=== PATIENT | female | born 1930 | race Caucasian/White ===

== ENCOUNTER 2022-08-18 08:12 | Inpatient (IN) | payer MEDICARE, BC ==
[~2022-08-18] VITALS: Ht 161.3 cm; Wt 85.7 kg
--- NOTE | 2022-08-18 08:15 | NUR ---
[id number] FROM HOME R ANKLE PAIN S/P GLF, NOTED COMPOUND FRACTURE COMMERCIAL CREDIT ANALYST.[id number] FROM HOME R ANKLE PAIN S/P GLF, NOTED COMPOUND FRACTURE COMMERCIAL CREDIT ANALYST.
--- NOTE | 2022-08-18 08:25 | NUR ---
medicated as ordered
[2022-08-18] MEDS ORDERED: ONDANSETRON HCL/PF 4 MG/2 ML VIAL ONE (08:27)
[2022-08-18] MEDS ORDERED: MORPHINE SULFATE INJ 4 MG/ML DISP.SYRIN ONE (08:28)
[2022-08-18] MEDS ORDERED: ONDANSETRON HCL/PF 4 MG/2 ML VIAL IVP ONE (08:30)
[2022-08-18] MEDS ORDERED: IV NS 0.9% 500 ML BAG IV ONE (08:30)
[2022-08-18] MEDS ORDERED: MORPHINE SULFATE INJ 2 MG/ML DISP.SYRIN IV ONE (08:30)
--- NOTE | 2022-08-18 08:38 | NUR ---
mixing technician at bed side
--- NOTE | 2022-08-18 08:41 | NUR ---
covid swab taken sent to lab
--- NOTE | 2022-08-18 08:42 | NUR ---
laborer salvage at bed side
[2022-08-18 08:48] LABS: BASOPHILS % (AUTO) 0.6 % (0.0-2.0); EOSINOPHILS % (AUTO) 1.2 % (0.0-6.0); HEMATOCRIT 36 % (33-45); HEMOGLOBIN 11.9 g/dL (11.5-14.8); LYMPHOCYTES # (AUTO) 1.6 K/uL (0.8-4.8); LYMPHOCYTES % (AUTO) 22.7 % (20.0-44.0); MEAN CORPUSCULAR HGB CONC 33 g/dl (31.0-36.0); MEAN CORPUSCULAR VOLUME 96 fL (82-100); MONOCYTES # (AUTO) 0.4 K/uL (0.1-1.30); MONOCYTES % (AUTO) 6.3 % (2.0-12.0); NEUTROPHILS # (AUTO) 4.9 K/uL (1.8-8.9); NEUTROPHILS % (AUTO) 69.2 % (43.0-81.0); PLATELET COUNT (AUTO) 201 K/uL (150-450); RED BLOOD CELL COUNT(AUTO) 3.77 MIL/uL (4.0-5.2); WHITE BLOOD COUNT (AUTO) 7.1 K/uL (4.3-11.0)
[2022-08-18 08:55] LABS: CALCIUM, SERUM 8.8 mg/dL (8.5-10.1); CARBON DIOXIDE 29 mmol/L (21-32); CHLORIDE 106 mmol/L (98-107); GLUCOSE 113 mg/dL (74-106); POTASSIUM 4.1 mmol/L (3.5-5.1); SODIUM SERUM 140 mmol/L (136-145); UREA NITROGEN, BLOOD 24 mg/dL (7-18)
[2022-08-18 09:01] LABS: ALANINE AMINOTRANSFERASE 16 U/L (12-78); ALKALINE PHOSPHATASE 63 U/L (46-116); ASPARTATE AMINOTRANSFERASE 16 U/L (15-37); BILIRUBIN,DIRECT 0.1 mg/dL (0.0-0.2); BILIRUBIN,TOTAL 0.4 mg/dL (0.2-1.0); TOTAL PROTEIN, SERUM 6.8 g/dL (6.4-8.2)
[2022-08-18] MEDS ORDERED: FENTANYL PF 100MCG/2ML AMPUL ONE ×2 (09:24→14:52)
[2022-08-18] MEDS ORDERED: FENTANYL PF 100MCG/2ML AMPUL IV ONE (09:30)
[2022-08-18] MEDS ORDERED: DILTIAZEM HCL 50 MG IV IV ONE ×2 (10:00→12:00)
[2022-08-18] MEDS ORDERED: KETAMINE HCL (500MG/10ML) 50 MG/ML VIAL ONE (10:02)
[2022-08-18] MEDS ORDERED: DILTIAZEM HCL 50 MG IV ONE (10:20)
[2022-08-18] MEDS ORDERED: ATOR10TA PO (10:32)
[2022-08-18] MEDS ORDERED: LOSA25TA27 PO (10:32)
[2022-08-18] MEDS ORDERED: ASPI-1420 PO (10:32)
--- NOTE | 2022-08-18 11:10 | NUR ---
CALLED [facility] [phone] REQUESTING TRAUMA HERI BE FAXED TO [phone].
[2022-08-18] MEDS ORDERED: CEFAZOLIN 2 GM in IV D5W 100 ML IV ONE (11:30)
--- NOTE | 2022-08-18 11:41 | NUR ---
[facility] [phone] JACQUELINE REQUESTING CLINICALS BE FAXED TO [phone]
--- NOTE | 2022-08-18 11:45 | NUR ---
DR. BYRD SPOKE TO THE PT, SCHEDULED SURGERY AT 4PM TODAY HERE IN [facility] . CANCEL TRANSFER TO OTHER HOSPITAL PER DR BYRD
--- NOTE | 2022-08-18 11:55 | NUR ---
[facility] CALLED SUPERVISOR GROVE PAGED.
--- NOTE | 2022-08-18 12:27 | NUR ---
BED ASSIGNED. GOING 118.1
[2022-08-18] MEDS ORDERED: MAGNESIUM HYDROXIDE 30 ML UDC PO PRN (12:30)
[2022-08-18] MEDS ORDERED: Z GUARD REMEDY 4 OZ OINT TP PRN (12:30)
[2022-08-18] MEDS ORDERED: IV NS 0.9% 1,000 ML IV PRN (12:30)
[2022-08-18] MEDS ORDERED: ONDANSETRON HCL/PF 4 MG/2 ML VIAL IVP PRN (12:30)
[2022-08-18] MEDS ORDERED: ACETAMINOPHEN 325 MG TABLET PO PRN ×2 (12:30→19:00)
[2022-08-18] MEDS ORDERED: MAG HYDROX/AL HYDROX/SIMETH 30 ML UDC PO PRN (12:30)
[2022-08-18] MEDS ORDERED: ANESTHESIA TRAY IN PYXIS 1 EA TRAY MC ONE (12:41)
--- NOTE | 2022-08-18 12:44 | NUR ---
ROOM 120-1
--- NOTE | 2022-08-18 12:45 | NUR ---
CONSENTS SIGNED BY PATIENT .
--- NOTE | 2022-08-18 13:12 | NUR ---
report given to Govind gonzalez to continue care.
--- NOTE | 2022-08-18 13:35 | NUR ---
RN notes: pt arrived from ER alert and oriented x 4, with right lower leg and foot brace awaiting for right ankle orif surgery around 4 pm, pt verbalized she is npo since last night, denied pain at this time, son at bed side, unable to unwrap the leg but per report pt has open fracture. v/s 151/76, temp 98.0, pulse 72, resp 18, o2 sat 98% on room air. with left hand gauge 20 saline lock
[2022-08-18] MEDS ORDERED: HYDROMORPHONE INJ 2 MG/ML DISP.SYRIN ONE (14:52)
[2022-08-18] MEDS ORDERED: MIDAZOLAM HCL 2 MG/2ML VIAL ONE (14:53)
[2022-08-18] MEDS ORDERED: ROCURONIUM BROMIDE 50 MG/5 ML ONE (14:53)
[2022-08-18] MEDS ORDERED: FAMOTIDINE/PF INJ 20 MG/2 ML VIAL IV ONE (14:53)
[2022-08-18] MEDS ORDERED: POLYMYXIN B SULFATE 500,000 UNITS ONE ×2 (15:06→16:18)
[2022-08-18] MEDS ORDERED: BUPIVACAINE 0.25% 75 MG/30 ML VIAL ONE (15:06)
[2022-08-18] MEDS: IV NS 0.9% 1,000 ML IV PRN (15:11)
--- NOTE | 2022-08-18 15:40 | NUR ---
RN notes; patient picked up by surgery staff for right ankle orif surgery, son at bedside
[2022-08-18] MEDS ORDERED: MEPERIDINE25 MG SYR 25 MG/ML VIAL ONE (17:54)
--- NOTE | 2022-08-18 18:45 | NUR ---
RN NOTES: PT IS BACK FROM SURGERY AWAKE ALERT AND ORIENTED S/P RIGHT ANKLE ORIF WITH EXTERNAL FIXATOR,NO PAIN OR SOB NOTED , ON O2 2LITER VIA NASAL CANNULA, VS BP 121/55, TEMP 97.7.PULSE 85 RESP 18,O2 SAT 97%, RESUMED IV NORMAL SALINE AT 125 ML/HR
[2022-08-18] MEDS ORDERED: DOCUSATE SODIUM 250 MG CAPSULE PO PRN (19:00)
[2022-08-18] MEDS ORDERED: DOCUSATE SODIUM 100 MG CAPSULE PO PRN (19:00)
[2022-08-18] MEDS ORDERED: BISACODYL SUPP (10 MG) 10 MG/SUPP.RECT SUPP.RECT RC PRN (19:00)
[2022-08-18] MEDS ORDERED: SENNOSIDES 8.6 MG TABLET PO PRN ×2 (19:00)
--- NOTE | 2022-08-18 19:25 | NUR ---
CONCRETE BOOM PUMP OPERATOR OPEN NOTE: ALERT AND ORIENTED X4. ON 02 2 LPM NC SATING AT 99%. MOIST ORAL MUCOSA. IVF NS ORDERED. IV SITE ON LEFT HAND INTACT WITH NO S/S OF COMPLICATIONS, DRESSING IS CLEAN AND DRY. RIGHT ANKLE WITH EXTERNAL FIXATOR AND RIGHT FOOT DRESSING BLEEDING. DECLINES PAIN OR DISCOMFORT AT THIS TIME. S/P RT ANKLE SURGERY. BILATERAL EXTREMITIES WITH EDEMA. RIGHT FOOT WITH EXTERNAL FIXATOR AND SANGUINEOUS DRESSING. HOB ELEVATED SEMI-FOWLERS POSITION. BED IS IN LOW POSITION, LOCKED, EXIT ALARM ON, BILATERAL HALF SIDE RAILS UP X2. CALL LIGHT WITHIN REACH.
--- NOTE | 2022-08-18 19:31 | NUR ---
RN NOTES: PT IN BED STABLE DENIED ANY PAIN , NO SOB NOTED, CONTINUE ON OXYGEN 2 LITER /MIN, RIGHT ANKLE DRESSING NOTED WITH MINIMUM AMOUNT OF BLOOD AND EXTERM=NAL FIXATOR. CONTINUE IV OF NORMAL SALINE AT 125 ML/HR, INSTRUCT PT NOT TO MOVE HER LEG, BED KEPT IN LOW AND LOCKED POSITION, SIDE RAILS UP, ENDORSED TO GROUP RESERVATIONS COORDINATOR RN FOR SINTIA
[2022-08-18] MEDS: ENOXAPARIN SODIUM 30 MG/0.3 ML DISP.SYRIN SQ SCH (20:00)
[2022-08-18] MEDS ORDERED: ENOXAPARIN SODIUM 40 MG/0.4 ML DISP.SYRIN SQ SCH (20:00)
[2022-08-18] MEDS: CEFAZOLIN 1 GM in IV D5W 50 ML IV SCH (21:15)
--- NOTE | 2022-08-18 21:45 | NUR ---
2144 Surgical site noted with some bleeding, JAGDISH Velazquez made aware with order to hold Lovenox dose tonight. Order noted and carried out.
[2022-08-19] MEDS: HYDROCODONE/APAP 5/325MG TABLET PO PRN ×3 (00:58→20:32)
[2022-08-19] MEDS: IV NS 0.9% 1,000 ML IV PRN ×2 (02:33→16:46)
[2022-08-19] MEDS: MORPHINE SULFATE INJ 2 MG/ML DISP.SYRIN IV PRN (03:05)
--- NOTE | 2022-08-19 03:20 | NUR ---
[address] on ACLS protocol, patient awake and verbally responsive.
[2022-08-19] MEDS: CEFAZOLIN 1 GM in IV D5W 50 ML IV SCH ×3 (04:53→21:45)
--- NOTE | 2022-08-19 06:45 | NUR ---
AUTO CLAIM REPRESENTATIVE CLOSING NOTE: ALERT AND ORIENTED X4. ON 02 2 LPM NC SATING AT 99%. MOIST ORAL MUCOSA. IVF NS ORDERED. IV SITE ON LEFT HAND INTACT WITH NO S/S OF COMPLICATIONS, DRESSING IS CLEAN AND DRY. RIGHT ANKLE WITH EXTERNAL FIXATOR AND RIGHT FOOT MONITORED FOR BLEEDING. CONTINUE TO NOTE WITH LEFT AND RIGHT UNDER BREAST RED EXCORIATED AREA. KEPT CLEAN AND DRY. NO FURTHER BLEEDING NOTED. ON PAIN MANAGEMENT WITH PRN NORCO AND MORPHINE SULFATE AND EFFECTIVE. BODY ALIGNMENT MAINTAINED. PRESSURE KEPT OFF AFFECTED AREAS.DECLINES PAIN OR DISCOMFORT AT THIS TIME. S/P RT ANKLE SURGERY. BILATERAL EXTREMITIES WITH EDEMA. RIGHT FOOT WITH EXTERNAL FIXATOR AND SANGUINEOUS DRESSING. ABLE TO TOLERATE CT SCAN ORDERED OF THE RIGHT LEG. PUREWICK IN PLACE WITH YELLOW URINE. HOB ELEVATED SEMI-FOWLERS POSITION. BED IS IN LOW POSITION, LOCKED, EXIT ALARM ON, BILATERAL HALF SIDE RAILS UP X2. CALL LIGHT WITHIN REACH.
--- NOTE | 2022-08-19 07:34 | NUR ---
RN OPEN NOTE PATIENT IS ALERT AND ORIENTED X4. ON 02 2 LPM NC SATING AT 99%. IVF NS RUNNING AT 75 ML/HR IV SITE ON LEFT HAND INTACT WITH NO S/S OF COMPLICATIONS, DRESSING IS CLEAN AND DRY. RIGHT ANKLE WITH EXTERNAL FIXATOR DECLINES PAIN OR DISCOMFORT AT THIS TIME. S/P RT ANKLE SURGERY. BILATERAL EXTREMITIES WITH EDEMA. RIGHT FOOT WITH EXTERNAL FIXATOR AND SANGUINEOUS DRESSING.REDNESS UNDER BOTH BREASTS , WOUND CONSULT ORDERED BY MIGHT SHIFT NURSE . HOB ELEVATED SEMI-FOWLERS POSITION. BED IS IN LOW POSITION, LOCKED, EXIT ALARM ON, BILATERAL HALF SIDE RAILS UP X2. CALL LIGHT WITHIN REACH. WILL CONTINUE TO MONITOR
--- NOTE | 2022-08-19 08:37 | NUR ---
WOUND CARE CONSULT: PT PRESENTS WITH BILATERAL BREASTFOLD RASH PRESENT ON ADMISSION. PT NOTED TO HAVE RT LOWER LEG ORTHO DRESSING WITH EXTERNAL FIXATOR AND SMALL AMOUNT OF RED DRAINAGE ON DRESSING. RN DISCUSSING WITH ORTHO SURGEON. DISCUSSED SKIN PROTECTION AND RASH CARE WITH NURSING STAFF. MD IN AGREEMENT WITH PLAN OF CARE.
[2022-08-19] MEDS: LOSARTAN POTASSIUM 25 MG TABLET PO SCH (08:55)
[2022-08-19] MEDS: CLOTRIMAZOLE 1% 15 GM TUBE TP SCH ×2 (09:30→16:14)
[2022-08-19 10:35] LABS: BASOPHILS % (AUTO) 0.3 % (0.0-2.0); EOSINOPHILS % (AUTO) 0.4 % (0.0-6.0); HEMATOCRIT 33 % (33-45); HEMOGLOBIN 10.7 g/dL (11.5-14.8); LYMPHOCYTES # (AUTO) 1.6 K/uL (0.8-4.8); LYMPHOCYTES % (AUTO) 15.5 % (20.0-44.0); MEAN CORPUSCULAR HGB CONC 33 g/dl (31.0-36.0); MEAN CORPUSCULAR VOLUME 97 fL (82-100); NEUTROPHILS % (AUTO) 74.8 % (43.0-81.0); PLATELET COUNT (AUTO) 172 K/uL (150-450); RED BLOOD CELL COUNT(AUTO) 3.34 MIL/uL (4.0-5.2); WHITE BLOOD COUNT (AUTO) 10.6 K/uL (4.3-11.0)
[2022-08-19 10:47] LABS: CALCIUM, SERUM 8.2 mg/dL (8.5-10.1); CREATININE 0.9 mg/dL (0.6-1.3); MAGNESIUM 1.9 mg/dL (1.8-2.4); PHOSPHORUS 3.5 mg/dL (2.5-4.9); POTASSIUM 4.1 mmol/L (3.5-5.1)
--- NOTE | 2022-08-19 18:30 | NUR ---
RN CLOSING NOTE ALERT AND ORIENTED X4. ON 02 ON ROOM AIR , MOIST IVF 75 ML/HR , IV SITE ON LEFT HAND INTACT WITH NO S/S OF COMPLICATIONS, DRESSING IS CLEAN AND DRY. RIGHT ANKLE WITH EXTERNAL FIXATOR AND RIGHT FOOT MONITORED FOR BLEEDING. CONTINUE TO NOTE WITH LEFT AND RIGHT UNDER BREAST RED EXCORIATED AREA. KEPT CLEAN AND DRY. ON PAIN MANAGEMENT WITH PRN NORCO AND MORPHINE SULFATE BODY ALIGNMENT MAINTAINED. PRESSURE KEPT OFF AFFECTED AREAS.DECLINES PAIN OR DISCOMFORT AT THIS TIME. S/P RT ANKLE SURGERY. BILATERAL EXTREMITIES WITH EDEMA. RIGHT FOOT WITH EXTERNAL FIXATOR AND SANGUINEOUS DRESSING. HOB ELEVATED SEMI-FOWLERS POSITION. BED IS IN LOW POSITION, LOCKED, EXIT ALARM ON, BILATERAL HALF SIDE RAILS UP X2. CALL LIGHT WITHIN REACH, ALL MEDICATION WERE ADMINISTERED , ALL NEEDS WERE MET WILL ENDORSE PRINT JOURNALIST NURSE TO CONTINUE WITH POC
[2022-08-19 20:00] VITALS: BP 134/83
[2022-08-19] MEDS: ENOXAPARIN SODIUM 30 MG/0.3 ML DISP.SYRIN SQ SCH (20:00)
--- NOTE | 2022-08-19 20:20 | NUR ---
JIHAN/COMPOUNDER HELPER PT WAS CLEANED AND REPOSITIONED, PT REFUSED TO HAVE A PERIWIK. PT WOULD RATHER HAVE LINE THERAPIST CLEAN HER OFTEN WITH A TOWEL. EXPLAIN THAT THE OTHER WAY WOULD PREVENT RASH HOWEVER PT SAID NO.
--- NOTE | 2022-08-19 20:33 | NUR ---
JIHAN/TELEVISION DIRECTOR PT IS BLEEDING FROM WOUND THEN THERE IS AN ORDER TO HOLD THE BLOOD THINNER.
--- NOTE | 2022-08-19 20:45 | NUR ---
JIHAN/CARBON BRUSH MAKER PT C/O OF PAIN 07/12 TO RIGHT FOOT, GAVE NORCO 1 TAB FOR THIS. CALL LIGHT W/IN REACH. WILL MONITOR THIS.
[2022-08-20] MEDS: HYDROCODONE/APAP 5/325MG TABLET PO PRN ×4 (00:51→20:53)
--- NOTE | 2022-08-20 01:00 | NUR ---
JIHAN/DENSITY CONTROL PUNCHER PT C/O OF PAIN 07/12 TO RIGHT FOOT, GAVE NORCO 1 TAB FOR THIS. CALL LIGHT W/IN REACH. WILL MONITOR THIS. ALSO AT THIS TIME IV TO LEFT HAND WAS D/C'D FOR INFILTRATION AND 22RIGHT HAND STARTED BY AWAKE OVERNIGHT MONITOR NURSE.
[2022-08-20 04:00] VITALS: BP 121/61
[2022-08-20] MEDS: CEFAZOLIN 1 GM in IV D5W 50 ML IV SCH ×3 (04:32→20:53)
[2022-08-20] MEDS: IV NS 0.9% 1,000 ML IV PRN ×2 (05:36→18:23)
--- NOTE | 2022-08-20 05:37 | NUR ---
JIHAN/TARP REPAIRER PT C/O OF PAIN 07/12 TO RIGHT FOOT, GAVE NORCO 1 TAB FOR THIS. CALL LIGHT W/IN REACH. WILL MONITOR THIS.
--- NOTE | 2022-08-20 07:21 | NUR ---
RN OPEN NOTE PATIENT IS IN BED SLEEPING ON ROOM AIR , BREATHING NON LABORED , NO S/S OF DISTRESS. IVF NS RUNNING AT 75 ML/HR IV SITE ON LEFT HAND INTACT WITH NO S/S OF COMPLICATIONS, DRESSING IS CLEAN AND DRY. RIGHT ANKLE WITH EXTERNAL FIXATOR S/P RT ANKLE SURGERY. BILATERAL EXTREMITIES WITH EDEMA. RIGHT FOOT WITH EXTERNAL FIXATOR AND SANGUINEOUS DRESSING.REDNESS UNDER BOTH BREASTS , WILL APPLY CLOTRIMAZOLE PER WOUND CONSULT ORDER . HOB ELEVATED SEMI-FOWLERS POSITION. BED IS IN LOW POSITION, LOCKED, BED ALARM IS ON, BILATERAL HALF SIDE RAILS UP X2. CALL LIGHT WITHIN REACH. WILL CONTINUE TO MONITOR
[2022-08-20] MEDS: LOSARTAN POTASSIUM 25 MG TABLET PO SCH (08:34)
[2022-08-20] MEDS: CLOTRIMAZOLE 1% 15 GM TUBE TP SCH ×2 (08:37→16:09)
[2022-08-20] MEDS: MORPHINE SULFATE INJ 2 MG/ML DISP.SYRIN IV PRN ×2 (10:59→17:28)
[2022-08-20 12:34] VITALS: BP 127/70
--- NOTE | 2022-08-20 18:32 | NUR ---
RN CLOSING NOTE ALERT AND ORIENTED X4. ON 02 ON ROOM AIR , IVF 75 ML/HR , IV SITE ON RIGHT HAND INTACT WITH NO S/S OF COMPLICATIONS, DRESSING IS CLEAN AND DRY. RIGHT ANKLE WITH EXTERNAL FIXATOR AND RIGHT FOOT MONITORED FOR BLEEDING. DRESSING WAS CHANGED TODAY .UNDER BOTH BREAST REDNESS IS LESS THEN WAS IN THE MORNING CLOTRIMAZOLE OINTMENT APPLIED TWICE A DAY ORDERED .PATIENT IS ON PAIN MANAGEMENT WITH PRN NORCO AND MORPHINE SULFATE . PRESSURE KEPT OFF AFFECTED AREAS.DECLINES PAIN OR DISCOMFORT AT THIS TIME. BILATERAL EXTREMITIES WITH EDEMA. HOB ELEVATED SEMI-FOWLERS POSITION. BED IS IN LOW POSITION, LOCKED, EXIT ALARM ON, BILATERAL HALF SIDE RAILS UP X2. CALL LIGHT WITHIN REACH, ALL MEDICATION WERE ADMINISTERED , ALL NEEDS WERE MET WILL ENDORSE ASSISTANT TO THE DIRECTOR NURSE TO CONTINUE WITH POC
--- NOTE | 2022-08-20 19:30 | NUR ---
RN OPENING NOTE RECEIVED PATIENT IN BED, AWAKE. A/O X 4, ABLE TO VERBALIZE NEEDS. CURRENTLY ON ROOM AIR, TOLERATING WELL. NO S/SX OF ACUTE RESPI DISTRESS NOTED AT THIS TIME. BREATHING EVEN AND NON-LABORED. IVF NS RUNNING AT 75 ML/HR ON RIGHT HAND #22g, PATENT AND INTACT. RIGHT ANKLE WITH EXTERNAL FIXATOR NOTED. PT IS S/P RT ANKLE SURGERY. BILATERAL EXTREMITIES NOTED WITH EDEMA. ALL SAFETY MEASURES IN PLACE: BED IN LOW POSITION, LOCKED. BED ALARM ON, SR UP X 3. CALL LIGHT WITHIN REACH. WILL CONTINUE TO MONITOR.
[2022-08-20 20:00] VITALS: BP 131/60
[2022-08-20] MEDS: ENOXAPARIN SODIUM 30 MG/0.3 ML DISP.SYRIN SQ SCH (20:54)
--- NOTE | 2022-08-20 21:00 | NUR ---
RN NOTE PT COMPLAINS OF PAIN IN R FOOT. REQUESTED FOR PAIN MEDICATION. NORCO GIVEN. WILL CONTINUE TO MONITOR.
[2022-08-21] MEDS: MORPHINE SULFATE INJ 2 MG/ML DISP.SYRIN IV PRN ×3 (01:46→08:58)
[2022-08-21 04:00] VITALS: BP 130/65
[2022-08-21] MEDS: CEFAZOLIN 1 GM in IV D5W 50 ML IV SCH ×3 (05:00→21:51)
[2022-08-21] MEDS: IV NS 0.9% 1,000 ML IV PRN ×2 (05:11→12:24)
--- NOTE | 2022-08-21 06:14 | NUR ---
RN NOTE PAIN MEDS ADMINISTERED Q4H PER PT REQUEST. PM CARE DONE. TURNED AND REPOSITIONED. WILL ENDORSE TO AM SHIFT NURSE FOR SINTIA.
--- NOTE | 2022-08-21 07:30 | NUR ---
MS RN AM NOTE RECEIVED PATIENT IN BED, AWAKE. A/O X 4, ABLE TO VERBALIZE NEEDS. CURRENTLY ON ROOM AIR, TOLERATING WELL. O2 SAT >95%, NO S/SX OF ACUTE RESPI DISTRESS NOTED AT THIS TIME. RESPIRATION UNLABORED. DENIES CHEST PAIN/DISCOMFORT, IVF NS RUNNING AT 75 ML/HR ON RIGHT HAND #22g, SITE CLEAR. RIGHT ANKLE WITH EXTERNAL FIXATOR NOTED. PT IS S/P RT ANKLE SURGERY. BILATERAL EXTREMITIES NOTED WITH EDEMA. ON REGULAR DIET. POC DISCUSSED. VERBALIZED UNDERSTANDING. ALL SAFETY MEASURES IN PLACE: BED IN LOW POSITION, LOCKED. BED ALARM ON, SR UP X 3. CALL LIGHT WITHIN REACH. WILL CONTINUE TO MONITOR.
[2022-08-21 08:00] VITALS: BP 151/69
[2022-08-21] MEDS: LOSARTAN POTASSIUM 25 MG TABLET PO SCH (08:20)
[2022-08-21] MEDS: CLOTRIMAZOLE 1% 15 GM TUBE TP SCH ×2 (08:21→16:28)
--- NOTE | 2022-08-21 08:30 | NUR ---
MS RN NOTES AT BEDSIDE , RELAYED BLOOD PRESSURE.151/69. NNO
--- NOTE | 2022-08-21 09:30 | NUR ---
RN NOTES DUE MEDS GIVEN
[2022-08-21] MEDS: MORPHINE SULFATE INJ 4 MG/ML DISP.SYRIN IV PRN (13:35)
--- NOTE | 2022-08-21 14:00 | NUR ---
RN NOTES AT 0855 - I WAS GONNA GIVE THE PT HER PAIN MEDICATION OF 4 MG MORPHINE SULFATE. HOWEVER I ONLY PULLED OUT 2 MG INSTEAD OF 4 MG. I CONSULTED [facility] AND JEWEL. INSTRUCTED TO RETURN THE 2 MG WHICH I DID AND DID CYCLE COUNT WITH CHARGE NURSE JEWEL WITH NO DISCREPANCIES. I PULLED OUT AGAIN 4 MG AND ADMINISTERED TO THE PATIENT. HOWEVER, IT SHOWS THAT, JASON IS SAYING I HAVE A PARTIAL WASTE OF 2 MG STILL. I CAN NOT PRESS THE PARTIAL WASTE BECAUSE I RETURNED THE 2 MG INITIALLY. WE DID A CYCLE COUNT AGAIN, BUT STILL IT SHOWS I HAVE A PARTIAL WASTE OF 2 MG. LYNETTE AWARE, AND SAID COUNT IS CORRECT.
[2022-08-21] MEDS: HYDROCODONE/APAP 5/325MG TABLET PO PRN ×2 (15:26→22:10)
[2022-08-21 16:00] VITALS: BP 146/75
--- NOTE | 2022-08-21 18:29 | NUR ---
MS RN CLOSING NOTE PATIENT IN BED, RESTING, A/O X 4, ABLE TO VERBALIZE NEEDS. CURRENTLY ON ROOM AIR, TOLERATING WELL. O2 SAT >95%, NO S/SX OF ACUTE RESPI DISTRESS NOTED AT THIS TIME. RESPIRATION UNLABORED. DENIES CHEST PAIN/DISCOMFORT, IVF NS RUNNING AT 75 ML/HR ON RIGHT HAND #22g, SITE CLEAR. RIGHT ANKLE WITH EXTERNAL FIXATOR NOTED. PT IS S/P RT ANKLE SURGERY. BILATERAL EXTREMITIES NOTED WITH EDEMA. ON REGULAR DIET. ALL DUE MEDS AND PAIN MANAGEMENT GIVEN. PM CARE DONE EARLIER. PT REFUSE ALVAREZ CATH OR USE OF PERIWICK. ALL SAFETY MEASURES IN PLACE: BED IN LOW POSITION, LOCKED. BED ALARM ON, SR UP X 3. CALL LIGHT WITHIN REACH. WILL ENDORSE TO NEXT SHIFT FOR SINTIA. FOR ORIF RT ANKLE ON TUESDAY.
[2022-08-21] MEDS: ENOXAPARIN SODIUM 30 MG/0.3 ML DISP.SYRIN SQ SCH (20:34)
[2022-08-21 22:00] VITALS: BP 129/70
[2022-08-22 04:00] VITALS: BP 131/68
[2022-08-22] MEDS: HYDROCODONE/APAP 5/325MG TABLET PO PRN (04:09)
[2022-08-22] MEDS: MORPHINE SULFATE INJ 4 MG/ML DISP.SYRIN IV PRN ×4 (04:37→20:26)
[2022-08-22] MEDS: CEFAZOLIN 1 GM in IV D5W 50 ML IV SCH ×3 (05:17→21:22)
[2022-08-22 08:00] VITALS: BP_SYST 144; BP_SYST 170; BP_DIAS 63; BP_DIAS 69
[2022-08-22 09:00] VITALS: BP 140/72
[2022-08-22] MEDS: CLOTRIMAZOLE 1% 15 GM TUBE TP SCH ×2 (09:06→16:36)
[2022-08-22] MEDS: LOSARTAN POTASSIUM 25 MG TABLET PO SCH (09:06)
[2022-08-22 12:00] VITALS: BP 150/74
[2022-08-22 16:00] VITALS: BP 137/61
--- NOTE | 2022-08-22 19:30 | NUR ---
RN OPENING NOTE PT IN SEMI-FOWLERS POSITION. A&OX4. RESPIRATIONS EVEN AND UNLABORED ON RA. SKIN WARM AND DRY. R HAND 22 G IV INTACT AND INFUSIG NS AT 75 ML/HR. DENIES OTHER NEEDS AT THIS TIME. SAFETY PRECAUTIONS IN PLACE. BED LOCKED AND AT LOWEST POSITION. BED ALARM ON AND CALL LIGHT WITHIN REACH. WILL CONTINUE TO MONITOR.
[2022-08-22 20:00] VITALS: BP 148/79
[2022-08-22] MEDS: ENOXAPARIN SODIUM 30 MG/0.3 ML DISP.SYRIN SQ SCH (20:04)
[2022-08-23 04:00] VITALS: BP 145/89
[2022-08-23] MEDS: CEFAZOLIN 1 GM in IV D5W 50 ML IV SCH ×3 (04:28→21:32)
[2022-08-23] MEDS: MORPHINE SULFATE INJ 4 MG/ML DISP.SYRIN IV PRN (05:42)
--- NOTE | 2022-08-23 06:48 | NUR ---
RN CLOSING NOTE PT A&OX4 IN HIGH-FOWLERS POSITION. SKIN IS PINK WARM AND DRY. RESPIRATIONS EVEN AND UNLABORED. IV LINE INTACT. DENIES OTHER NEEDS AT THIS TIME. SAFETY PRECAUTIONS IN PLACE. BED LOCKED AND AT LOWEST LEVEL WITH 2 RAILS UP. CALL LIGHT WITHIN REACH.
[2022-08-23 07:33] LABS: BASOPHILS % (AUTO) 0.2 % (0.0-2.0); EOSINOPHILS % (AUTO) 1.5 % (0.0-6.0); HEMATOCRIT 34 % (33-45); HEMOGLOBIN 11.3 g/dL (11.5-14.8); LYMPHOCYTES # (AUTO) 0.7 K/uL (0.8-4.8); LYMPHOCYTES % (AUTO) 9.4 % (20.0-44.0); MEAN CORPUSCULAR HGB CONC 34 g/dl (31.0-36.0); MEAN CORPUSCULAR VOLUME 96 fL (82-100); MONOCYTES # (AUTO) 0.7 K/uL (0.1-1.30); MONOCYTES % (AUTO) 8.7 % (2.0-12.0); NEUTROPHILS # (AUTO) 6.1 K/uL (1.8-8.9); NEUTROPHILS % (AUTO) 80.2 % (43.0-81.0); PLATELET COUNT (AUTO) 187 K/uL (150-450); RED BLOOD CELL COUNT(AUTO) 3.54 MIL/uL (4.0-5.2); WHITE BLOOD COUNT (AUTO) 7.6 K/uL (4.3-11.0)
[2022-08-23 07:41] LABS: CALCIUM, SERUM 8.1 mg/dL (8.5-10.1); CARBON DIOXIDE 28 mmol/L (21-32); CHLORIDE 104 mmol/L (98-107); CREATININE 0.5 mg/dL (0.6-1.3); GLUCOSE 98 mg/dL (74-106); POTASSIUM 4.2 mmol/L (3.5-5.1); SODIUM SERUM 140 mmol/L (136-145); UREA NITROGEN, BLOOD 12 mg/dL (7-18)
--- NOTE | 2022-08-23 07:44 | NUR ---
RN OPENING NOTE PT IN SEMI-FOWLERS POSITION. A&OX4. RESPIRATIONS EVEN AND UNLABORED ON RA, NO SOB NOTED, NOT IN DISTRESS. SKIN WARM AND DRY. R HAND 22 PIV, INTACT. PATIENT ON NPO STATUS. DENIES ANY PAIN AT THIS MOMENT. BED IN LOWEST POSITION. CALL LIGHT WITHIN REACH. SAFETY MEASURES IN PLACED. WILL CONTINUE PLAN OF CARE.
[2022-08-23] MEDS: LOSARTAN POTASSIUM 25 MG TABLET PO SCH (08:35)
[2022-08-23] MEDS: IV NS 0.9% 1,000 ML IV PRN (08:35)
[2022-08-23] MEDS: CLOTRIMAZOLE 1% 15 GM TUBE TP SCH ×2 (08:49→17:00)
[2022-08-23] MEDS ORDERED: ANESTHESIA TRAY IN PYXIS 1 EA TRAY MC ONE (10:00)
[2022-08-23] MEDS ORDERED: BUPIVACAINE 0.25% 75 MG/30 ML VIAL ONE (10:01)
[2022-08-23] MEDS ORDERED: SEVOFLURANE 250 ML BOTTLE IH ONE (10:34)
[2022-08-23] MEDS ORDERED: POLYMYXIN B SULFATE 500,000 UNITS ONE ×4 (11:07→16:51)
[2022-08-23 12:00] VITALS: BP 125/69
[2022-08-23] MEDS: HYDROCODONE/APAP 5/325MG TABLET PO PRN (12:01)
[2022-08-23] MEDS ORDERED: MIDAZOLAM HCL 2 MG/2ML VIAL ONE (15:05)
[2022-08-23] MEDS ORDERED: FENTANYL PF 100MCG/2ML AMPUL ONE (15:05)
[2022-08-23] MEDS ORDERED: ROCURONIUM BROMIDE 50 MG/5 ML ONE (15:06)
[2022-08-23] MEDS ORDERED: HYDROMORPHONE INJ 2 MG/ML DISP.SYRIN ONE (15:06)
[2022-08-23] MEDS ORDERED: FAMOTIDINE/PF INJ 20 MG/2 ML VIAL IV ONE (15:06)
--- NOTE | 2022-08-23 15:39 | NUR ---
RN NOTES MARIANA MIDLINE NOTED PATENT AND INTACT, FLUSHES WELL, WITH NS RUNNING @75ML/HR. @1538H PATIENT OUT FOR ORIF OF RIGHT ANKLE.
[2022-08-23] MEDS ORDERED: HYDROGEN PEROXIDE 480 ML BOTTLE ONE (17:47)
--- NOTE | 2022-08-23 19:40 | NUR ---
RN OPEN NOTE: RECEIVED PATIENT FROM RECOVERY S/P ORIF RIGHT ANKLE. ALERT TO NAME ONLY. CONFUSED AND DISORIENTED TO TIME AND PLACE. ON 02 4LPM NC WITH O2 SAT 92 %. UNLABORED BREATHING. SYMMETRICAL CHEST EXPANSION. IVF BY GRAVITY COMPLETED PER ROSEMARIE MARTIN, HAD EPISODE OF HYPOTENSION AND HEART RHYTHM FLUCTUATING. MARIANA ML PATENT. ON TELE MONITOR WITH A RHYTHM OF AFIB. 100-109. DENIES PAIN OR DISCOMFORT. RIGHT LOWER EXTREMITY FROM KNEE DOWN WITH OPEN TOES WRAPPED IN MAHESH BANDAGE. ABLE TO WIGGLE TOES. CAPILLARY REFILL LESS THAN 3. INITIATED IV FLUIDS ORDERED ON MARIANA MIDLINE. BODY ALIGNMENT MAINTAINED. ELEVATED BLE TO DECREASE EDEMA. PUREWICK ON WITH YELLOW URINE. HOB ELEVATED AT SEMI-FOWLERS POSITION, BILATERAL HALF SIDE RAILS UP X2, BED IN LOW POSITION, LOCKED AND EXIT ALARM ON, CALL LIGHT IN REACH. SON AT BEDSIDE UPDATE PROVIDED. V/S 111/62, HR 118, T. 97.6 R 18 0/10.
[2022-08-23] MEDS: ENOXAPARIN SODIUM 30 MG/0.3 ML DISP.SYRIN SQ SCH (20:00)
--- NOTE | 2022-08-23 21:28 | NUR ---
DR. TESHA YI INFORMED PATIENT HAS ORDER FOR LOVENOX 30 MG SCHEDULED 2000 S/P RIGHT ANKLE ORIF WITH ORDERS TO HOLD TODAY AND TOMORROW DOSE.
[2022-08-24] MEDS ORDERED: ANCEF 1 GM/50 ML D5W IV SCH ×2
[2022-08-24] MEDS: MORPHINE SULFATE INJ 4 MG/ML DISP.SYRIN IV PRN ×4 (01:37→22:23)
[2022-08-24] MEDS: IV NS 0.9% 1,000 ML IV PRN ×2 (03:24→19:16)
[2022-08-24] MEDS: CEFAZOLIN 1 GM in IV D5W 50 ML IV SCH ×3 (05:35→20:58)
[2022-08-24 06:49] VITALS: BP 111/62
--- NOTE | 2022-08-24 06:55 | NUR ---
TELE CLOSING NOTE: ALERT AND ORIENTED TIMES 3. UNLABORED BREATHING 4 LPM NC. SATING AT 98 %. IVF 75ML/HR. CONTINUES NPO. ON PAIN MANAGEMENT WITH MORPHINE SULFATE IV ORDERED AND EFFECTIVE. S/P ORIF RIGHT ANKLE. GOOD CAPILLARY REFILL LESS THAN 3. BODY ALIGNMENT MAINTAINED.
[2022-08-24] MEDS: LOSARTAN POTASSIUM 25 MG TABLET PO SCH (08:37)
[2022-08-24] MEDS: CLOTRIMAZOLE 1% 15 GM TUBE TP SCH ×2 (08:38→17:29)
[2022-08-24 16:00] VITALS: BP 127/58
[2022-08-24] MEDS: ENOXAPARIN SODIUM 30 MG/0.3 ML DISP.SYRIN SQ SCH (20:00)
--- NOTE | 2022-08-24 20:00 | NUR ---
MS RN NOTE PT IN BED AWAKE. A/O X 4, NO SOB, NO DISTRESS OR DISCOMRFORT NOTED. DENIES PAIN AT THIS TIME. O2 2L VIA N/C. RLE WITH TTWB DSG ON WITH MAHESH BANDAGE WRAP ON. PT ABLE TO WIGGLE HER TOES. NS INFUSING AT 75 ML/HR, NO S/S OF INFILTRATION NOTED. MARIANA MIDLINE. SIDE RAILS UP X 3 AND CALL LIGHT WITHIN REACH. CONTINUE TO MONITOR HER.
--- NOTE | 2022-08-24 23:28 | NUR ---
MS RN NOTE REPORT GIVEN TO NURSE VU FOR CONTINUE TO CARE.
--- NOTE | 2022-08-24 23:30 | NUR ---
MS RN NOTE PT IN BED AWAKE WATCHING MOVIE, A/O X 4, O2 2L VIA N/C, TOLERATING WELL, NO S/S OF DISTRESS. RLE WITH TTWB DSG ON WITH MAHESH BANDAGE WRAP ON. PT ABLE TO WIGGLE HER TOES. NS INFUSING AT 75 ML/HR, NO S/S OF INFILTRATION NOTED. MARIANA MIDLINE. SIDE RAILS UP X 3 AND CALL LIGHT WITHIN REACH. WILL CONTINUE TO MONITOR HER.
[2022-08-25] MEDS: MORPHINE SULFATE INJ 4 MG/ML DISP.SYRIN IV PRN ×3 (03:23→13:09)
[2022-08-25 04:00] VITALS: BP 149/63
[2022-08-25] MEDS: CEFAZOLIN 1 GM in IV D5W 50 ML IV SCH ×2 (05:28→12:09)
[2022-08-25] MEDS: IV NS 0.9% 1,000 ML IV PRN (06:10)
--- NOTE | 2022-08-25 06:34 | NUR ---
MS RN NOTE PT IN BED INTERMEDIATELY SLEEPING , A/O X 4, O2 2L VIA N/C, TOLERATING WELL, NO S/S OF DISTRESS. RLE WITH TTWB DSG ON WITH MAHESH BANDAGE WRAP ON. PT ABLE TO WIGGLE HER TOES. IV ACCESS ON MARIANA MIDLINE RUNNING NS@75 ML/HR, NO S/S OF INFILTRATION NOTED. ALL DUE MEDS GIVEN. ALL SAFETY MEASURES IN PLACE. SIDE RAILS UP X 3 AND CALL LIGHT WITHIN REACH. WILL ENDORSE TO MORNING SHIFT FOR SINTIA.
--- NOTE | 2022-08-25 07:20 | NUR ---
rn opening note pt in bed. pt alert and oriented x4. hob elevated. on 2 l nasal cannula tolerating at 98%. pt has right lower extremity toe touch weight baring with peewee banadge wrap. pt able to wiggle toes. jsoeph midline intact, patent and flushing well. running fluids at ordered rate. all safety measures in place. call light within reach. bed locked at lowest position. side rails up x2.
[2022-08-25 08:00] VITALS: BP 126/66
[2022-08-25] MEDS: LOSARTAN POTASSIUM 25 MG TABLET PO SCH (08:32)
[2022-08-25] MEDS: CLOTRIMAZOLE 1% 15 GM TUBE TP SCH ×2 (08:37→16:05)
[2022-08-25] MEDS ORDERED: ENOX30DI SQ (10:13)
--- NOTE | 2022-08-25 14:30 | NUR ---
gave report to Huan MARTIN at [facility]
[2022-08-25 16:00] VITALS: BP 125/59
[2022-08-25] MEDS: HYDROCODONE/APAP 5/325MG TABLET PO PRN (16:28)
--- NOTE | 2022-08-25 16:52 | NUR ---
lab rn note pt discharged. gave pt discharge instructions.pt verbalized understanding. gave report to transport team. removed midline and telebox. tele box returned to nurse station. pt discharged with belongings
== END 2022-08-25 16:59 | DRG 492 ==
LOC: ER 08:16 → MEDSG1 13:17 → TELE1 22:04 → MEDSG1 08-19 10:45
PROVIDERS: ADMIT Internal Medicine; ATTEND Internal Medicine
PROC: 0QSG35Z Reposition Right Tibia with External Fixation Device, Percutaneous Approach (ICD-10-PCS; principal; 2022-08-18)
PROC: 5A2204Z Restoration of Cardiac Rhythm, Single (ICD-10-PCS; 2022-08-18)
PROC: 0QSGXZZ Reposition Right Tibia, External Approach (ICD-10-PCS; 2022-08-18)
PROC: 05HB33Z Insertion of Infusion Device into Right Basilic Vein, Percutaneous Approach (ICD-10-PCS; 2022-08-22)
PROC: 0QSG04Z Reposition Right Tibia with Internal Fixation Device, Open Approach (ICD-10-PCS; 2022-08-23)
DX: S82.841B Displaced bimalleolar fracture of right lower leg, initial encounter for open fracture type I or II (principal); N17.0 Acute kidney failure with tubular necrosis; I48.91 Unspecified atrial fibrillation; I10 Essential (primary) hypertension; S93.04XA Dislocation of right ankle joint, initial encounter; Z20.820 Contact with and (suspected) exposure to varicella; W18.30XA Fall on same level, unspecified, initial encounter; Y92.009 Unspecified place in unspecified non-institutional (private) residence as the place of occurrence of the external cause; G51.0 Bell's palsy; E78.00 Pure hypercholesterolemia, unspecified; Z79.82 Long term (current) use of aspirin; Z79.899 Other long term (current) drug therapy; Z86.73 Personal history of transient ischemic attack (TIA), and cerebral infarction without residual deficits; E78.5 Hyperlipidemia, unspecified; I70.0 Atherosclerosis of aorta
CPT/HCPCS: 36415; 71045-TC; 73600-TC; 73610-TC; 73700-TC; 80048-TC; 80076-TC; 83735-TC; 84100-TC; 85025-TC; 85730-TC; 87081-TC; 93307-TC; 93971-TC; 97110-TC; 97530-TC; A4217; A6253; A6402; C1713; C9803; G0378; J0690; J1170; J1650; J2175; J2250; J2270; J2405; J2704; J2765; J3010; J3490; J7030; J7040; J7060